=== PATIENT | male | born 1965 | race Caucasian/White ===

== ENCOUNTER 2019-11-07 10:00 | Outpatient (RCR) | payer BC | END 2019-11-09 | LOC: PT 10:00 | PROVIDERS: ATTEND Orthopaedic Surgery Sports Medicine | DX: M17.12 Unilateral primary osteoarthritis, left knee (principal); Z96.652 Presence of left artificial knee joint; M62.81 Muscle weakness (generalized); M25.562 Pain in left knee; R26.9 Unspecified abnormalities of gait and mobility; M25.462 Effusion, left knee; M25.662 Stiffness of left knee, not elsewhere classified ==

== ENCOUNTER 2019-11-12 10:00 | Outpatient (RCR) | payer BC | END 2019-12-09 | LOC: PT 10:00 | PROVIDERS: ATTEND Orthopaedic Surgery Sports Medicine | DX: M17.12 Unilateral primary osteoarthritis, left knee (principal); M62.81 Muscle weakness (generalized); M25.562 Pain in left knee; M25.662 Stiffness of left knee, not elsewhere classified; R26.9 Unspecified abnormalities of gait and mobility ==